=== PATIENT | female | born 1960 | race Caucasian/White ===

== ENCOUNTER 2019-07-28 15:59 | Emergency (ER) | payer BC ==
[~2019-07-28] VITALS: Ht 170.2 cm; Wt 109.1 kg
[2019-07-28 16:03] VITALS: TEMP 97.2
[2019-07-28] MEDS ORDERED: XANAX 0.5MG0.5 MG PO (17:12)
[2019-07-28] MEDS ORDERED: TYLENOL 8 HR PO (17:12)
[2019-07-28] MEDS ORDERED: QVAR REDIHALE10.6 GM (17:12)
[2019-07-28] MEDS ORDERED: CYANOCOBAL1000 MCG/M IM (17:13)
[2019-07-28] MEDS ORDERED: LEVOXYL0.125 MG PO (17:13)
[2019-07-28] MEDS ORDERED: FLEXERIL 1010 MG/TAB PO (17:13)
[2019-07-28] MEDS ORDERED: PRIL40 PO (17:14)
[2019-07-28] MEDS ORDERED: DESYREL 100MG100 MG PO (17:15)
[2019-07-28 17:49] LABS: HEMATOCRIT 45.1 % (37.0-47.0); HEMOGLOBIN 14.8 g/dl (12.5-16.0); MEAN CELL VOLUME 90 fl (80.0-100.0); MEAN CORPUSCULAR HEMOGLOBIN 30 pg (27.0-31.0); MEAN CORPUSCULAR HGB CONC 33 g/dl (33.0-37.0); MEAN PLATELET VOLUME 9.4 fl (7.4-10.4); PLATELET COUNT 267 K/mm3 (130-400); RED BLOOD COUNT 5.01 M/mm3 (4.10-5.30); REDCELL DISTRIBUTION WIDTH-CV 14.6 % (11.5-14.5)
[2019-07-28 17:59] LABS: ALANINE AMINOTRANSFERASE 31 U/L (9-52); ALBUMIN 4.4 gm/dL (3.5-5.0); ALKALINE PHOSPHATASE 92 U/L (50-136); ANION GAP 11 mmol/L (7-16); AST,SGOT 34 U/L (15-37); BILIRUBIN,TOTAL 0.9 mg/dL (0.0-1.0); BLOOD UREA NITROGEN 11 mg/dL (7-17); CALCIUM 9.5 mg/dL (8.4-10.2); CARBON DIOXIDE 26 mmol/L (22-30); CHLORIDE 102 mmol/L (98-107); CREATININE, serum 0.48 (0.52-1.25); GLUCOSE 127 mg/dL (74-106); POTASSIUM 4.2 mmol/L (3.4-5.0); SODIUM 139 mmol/L (137-145); TOTAL PROTEIN 7.2 gm/dL (6.4-8.2)
[2019-07-28 18:11] LABS: TROPONIN-I < 0.012 ng/mL (0.000-0.035)
[2019-07-28 18:55] LABS: ARTERIAL BLD GAS O2 SATURATION 90.3 % (92-100); ARTERIAL BLD GAS TCO2 CT 25.1; ARTERIAL BLOOD GAS BASE EXCESS 0.6 (-2-2); ARTERIAL BLOOD GAS PCO2 35.2 mmHg (35-45); ARTERIAL BLOOD GAS PO2 57.3 mmHg (80-100); ARTERIAL BLOOD GAS pH 7.45 (7.35-7.45)
[2019-07-28 19:21] LABS: LYMPHOCYTE 14 % (20.0-51.0); METAMYELOCYTE 1 % (0-0); NEUTROPHILS 85 % (42.0-75.2); PLATELET ESTIMATE NORMAL (NORMAL)
[2019-07-28 20:45] VITALS: BP 129/95; PULSE 90
== END 2019-07-28 20:45 | disposition short-term general hospital (02) ==
LOC: COL.ER 15:59
PROVIDERS: Emergency Medicine
DX: R09.02 Hypoxemia (principal); R06.02 Shortness of breath
CPT/HCPCS: J2930